=== PATIENT | male | born 1970 | race African-American/Black ===

== ENCOUNTER 2016-11-30 09:25 | Emergency (ER) | payer OTHER ==
--- NOTE | ~2016-11-30 | EKG ---
PATIENT: BRIAN VILLARREAL UNIT #: [id number] Ventricular Rate: 73 BPM Atrial Rate: 73 BPM P-R Interval: 170 ms QRS Duration: 68 ms Q-T Interval: 382 ms QTC Calculation(Bezet): 420 ms P Blackstone: 71 degrees Calculated R [place]: 46 degrees Calculated T [place]: 57 degrees Diagnosis Line: Normal sinus rhythm Diagnosis Line: Normal ECG Diagnosis Line: No previous ECGs available Diagnosis Line: Confirmed by SHAY BOOKER MD ([id number]) on 12/01/2016 Diagnosis Line: 10:01:24 AM INTERPRETING MD: JHONY MITCHELL
--- NOTE | ~2016-11-30 | CR72 ---
[facility] A Service of [facility] RADIOLOGY TEXT RESULTS PATIENT: BRIAN VILLARREAL LOCATION: [facility] : 72 UNIT #: [id number] AGE: [address]: Nelly Durand MD SEX: M ORDER DR: [id number] [facility] [address] [place], [place] [address] [id number] MR#: [id number] Acc #: [id number] NAME: BRIAN VILLARREAL. : 1970 SEX: M STUDY DATE/TIME: 11/30/2016 10:36 UNIT: [facility] ROOM: STUDY DESCRIPTION: CR Chest Single View Portable Attending Physician: Nelly Durand M.D. Ordering Physician: Nelly Durand M.D. Primary Care Physician: David Bolaños M.D. MEDICAL IMAGING REPORT This report is preliminary unless electronic signature is present EXAM Portable chest, 11/30/16 HISTORY Shortness of breath and wheezing that started this morning. FINDINGS The heart size is within normal limits. The patient has mild thoraco-thoracic scoliosis with convexity to the right. There is some fullness within the right infrahilar region; however, I do not really think it is significantly changed when compared to the 10/04/11 exam when allowance is made to difference in technique. I am not convinced I can see any acute infiltrates. There is no pneumothorax or pleural effusion. Dictated by... Zehra Madison M.D. THIS IS AN ELECTRONICALLY VERIFIED REPORT Zehra Madison M.D. at 11/30/2016 5:20 PM AFF/ea TD: 11/30/2016 12:46 JOB #: [id number] MEDICAL IMAGING REPORT Page 1 of 1 COPY
[~2016-11-30 09:25] MED LIST: ADVAIR 100-501 EAC1 IH; ALBUTEROL17 G1 IH; ALBUTEROL17 GM INH; AMOXIL500 M1 PO; BENICAR HCT 40-1 TA1 PO; CELEBREX PO; COMBIVENT INH14.7 GM INH; FLEXERIL10 MG PO; HYDROCHLOROTHIA25 MG PO; ILOTYCIN1 GM OD; ORUDIS75 M1 PO; PREDNISONE PO; PREDNISONE5 MG PO; PROVENTIL17 G1; ZYRTEC10 M2 PO
[2016-11-30 10:39] LABS: BASOPHIL% 0.7 % (0-2.5); EOSINOPHIL# 0.3 X10e3 (0-0.7); HEMATOCRIT 41.7 % (38.0-50.0); HEMOGLOBIN 13.4 gm/dL (13.0-16.0); LYMPHOCYTE# 1.3 X10e3 (1.0-3.5); LYMPHOCYTE% 25.9 % (17.0-45.0); MEAN CELL VOLUME 89.8 FL (83-96); MEAN CORPUSCULAR HEMOGLOBIN 28.9 PG (28-34); MEAN CORPUSCULAR HGB CONC 32.1 g/dL (30-36); MEAN PLATELET VOLUME 8.1 FL (6.5-11.5); MONOCYTE# 0.5 X10e3 (0-1.0); MONOCYTE% 9.2 % (3.0-12.0); NEUTROPHIL# 2.9 X10e3 (1.5-7.1); NEUTROPHIL% 58.2 % (40-75); PLATELET COUNT 211 X10e3 (140-420); RED BLOOD COUNT 4.64 X10e (3.90-5.60); RED CELL DISTRIBUTION WIDTH 12.3 % (11.0-15.5)
[2016-11-30 10:40] LABS: DIFF IND NO
[2016-11-30 10:48] LABS: POC - CKMB 2.2 ng/mL (0.0-7.9); POC - TROPONIN <0.05 ng/mL (<=0.05)
[2016-11-30 11:05] LABS: ALBUMIN SERUM 4.2 g/dL (3.5-5.0); BILIRUBIN, DIRECT 0.1 mg/dL (0.0-0.2); BILIRUBIN,INDIRECT 0.5 mg/dL (0.0-0.9); BILIRUBIN,TOTAL 0.6 mg/dL (0.2-2.0); BUN/CREATININE RATIO 14.44; CALCIUM SERUM 8.7 mg/dL (8.4-10.2); CREATININE SERUM 0.9 mg/dL (0.6-1.4); GLOM FILT RATE Estimated 119.1 mL/min (>60); POTASSIUM 3.8 mmol/L (3.5-5.1); PROTEIN TOTAL SERUM 6.9 g/dL (6.0-8.3)
== END 2016-11-30 12:39 | disposition home or self-care (01) ==
LOC: CED 09:25
PROVIDERS: Emergency Medicine
DX: J45.901 Unspecified asthma with (acute) exacerbation (principal)
CPT/HCPCS: 36415; 71010; 80048; 80076; 82553; 83880; 84484; 85025; 93005; 94640; 99284